=== PATIENT | male | born 1980 | race African-American/Black ===

== ENCOUNTER 2023-02-23 19:46 | Emergency (ER) | payer MEDICAID ==
[~2023-02-23] VITALS: Ht 177.8 cm; Wt 66.8 kg
[2023-02-23] MEDS ORDERED: BACITRACIN 28 GM OINTMENT TP ONE (20:00)
[2023-02-23 21:34] LABS: COVID AG,FIA SOURCE NASAL SWAB
[2023-02-23 21:55] LABS: INFLUENZA TYPE A NEGATIVE FOR TYPE A (NEGATIVE); INFLUENZA TYPE B NEGATIVE FOR TYPE B (NEGATIVE)
[2023-02-24 01:07] VITALS: BP 127/61
== END 2023-02-24 01:09 | disposition home or self-care (01) ==
LOC: EMS 19:48
DX: J02.9 Acute pharyngitis, unspecified (principal); Z20.822 Contact with and (suspected) exposure to COVID-19
CPT/HCPCS: 71045; 87430; 87804; 99284

== ENCOUNTER 2025-02-09 08:46 | Emergency (ER) | payer MEDICAID ==
[~2025-02-09] VITALS: Ht 177.8 cm; Wt 86.4 kg
[2025-02-09 09:02] VITALS: TEMP 98.5
[2025-02-09 09:45] VITALS: BP 119/66; PULSE 77; RESP 17; O2SAT 98
[2025-02-09] MEDS: PROPARACAINE HCL 0.5% 15 ML OPHTHALMIC SOLUTION OU ONE (10:28)
[2025-02-09] MEDS: FLUORESCEIN SODIUM 1 MG STRIP OU ONE (10:28)
[2025-02-09] MEDS ORDERED: OFLO5DRO49 OU (10:44)
[2025-02-09] MEDS: OFLOXACIN 0.3% 5 ML OPHTHALMIC SOLUTION OU ONE (11:30)
== END 2025-02-09 13:27 | disposition home or self-care (01) ==
LOC: EMS 08:46
DX: H10.9 Unspecified conjunctivitis (principal)
CPT/HCPCS: 99283